=== PATIENT | male | born 1975 | race Caucasian/White ===

== ENCOUNTER 2016-12-23 01:53 | Emergency (ER) | payer OTHER ==
--- NOTE | ~2016-12-23 | CT16 ---
[facility] A Service of [facility] RADIOLOGY TEXT RESULTS PATIENT: ALYSSA SCHROEDER LOCATION: SED : 71 UNIT #: [id number] AGE: [address]: Israel Anglin MD SEX: M ORDER DR: [id number] [place] [id number] E MR#: [id number] Acc #: [id number] NAME: ALYSSA SCHROEDER. : 1975 SEX: M STUDY DATE/TIME: 12/23/2016 3:40 UNIT: SED ROOM: STUDY DESCRIPTION: CT Angio Chest for PE Attending Physician: Israel Anglin M.D. Ordering Physician: Israel Anglin M.D. Primary Care Physician: Jorgito Paul A.P.R.N. MEDICAL IMAGING REPORT This report is preliminary unless electronic signature is present. EXAM CT scan of the chest with pulmonary embolus protocol INDICATION Right-sided chest pain and shortness of breath this morning. History of pulmonary embolus 2009. FINDINGS The patient was given 80 mL of Isovue 370 and spiral imaging was performed through the chest. 3-D reconstructions of the pulmonary arteries were generated. This CT examination was performed with one or more of the following radiation dose reduction techniques: automatic exposure control, adjustment of mA and/or kV according to patient size, and iterative reconstruction. There is adequate opacification of the pulmonary arteries. There is no CT evidence of pulmonary embolus. The aorta is normal in size. There is no adenopathy. The visualized portions of the upper abdomen are normal. The thyroid gland is normal. The lungs are clear. IMPRESSION No CT evidence of pulmonary embolus. No active disease. Dictated by... Abdon Pina M.D. THIS IS AN ELECTRONICALLY VERIFIED REPORT Abdon Pina M.D. at 12/23/2016 1:21 PM LORRAINE/shira [facility] A Service of [facility] RADIOLOGY TEXT RESULTS PATIENT: ALYSSA SCHROEDER [id number] [birth year] UNIT #: [id number] AGE: [address]: Israel Anglin MD SEX: M ORDER DR: TD: 12/23/2016 06:16 JOB #: [id number] MEDICAL IMAGING REPORT Page 1 of 1
--- NOTE | ~2016-12-23 | EKG ---
PATIENT: ALYSSA SCHROEDER UNIT #: [id number] Ventricular Rate: 107 BPM Atrial Rate: 107 BPM P-R Interval: 160 ms QRS Duration: 84 ms Q-T Interval: 348 ms QTC Calculation(Bezet): 464 ms P [place]: 31 degrees Calculated R [place]: 34 degrees Calculated T [place]: 50 degrees Diagnosis Line: Sinus tachycardia Diagnosis Line: Low voltage QRS Diagnosis Line: Borderline ECG Diagnosis Line: When compared with ECG of 23-MAR-2016 00:43, Diagnosis Line: No significant change was found Diagnosis Line: Confirmed by JUNIOR NEGRO MD ([id number]) on Diagnosis Line: 12/29/2016 8:29:06 AM INTERPRETING MD: MARKY GOOD
[~2016-12-23 01:53] MED LIST: ADIPEX-P37.5 M1 PO; ALAVERT10 M2 PO; ALAVERT10 MG/TAB PO; ALBUTEROL17 GM INH; ARIXTRA SUBQ; ARIXTRA2.5 MG/0.5 INJ; BACTRIM DS TABL1 TAB PO; BENTYL20 MG; C PAP; CLARITIN10 M3 PO; COUMADIN PO; DIFLUCAN PO; DILANTIN PO; FLEXERIL10 MG PO; FUROSEMIDE40 MG PO; GLIPIZIDE5 MG/BOTT1 PO; GLUCOPHAGE500 MG PO; HUGO FOLDING WA1 PKT; HYDROCHLOROTHIA25 MG PO; HYDROCODON-ACE1 EAC7 PO; HYDROCORTISONE15 G3 TP; IBUPROFEN800 MG; IBUPROFEN800 MG PO; KEFLEX PO; KEFLEX500 M1 PO; LANSOPRAZOLE; LASIX PO; LEVAQUIN PO; LIPITOR20 MG PO; LORTAB 5/500 TA1 TA1 PO; METFORMIN HCL1000 M1 PO; METFORMIN PO; MUCINEX DM ER1 EAC1 PO; MUCINEX DM TABL1 BOX PO; NORCO1 TAB 10/3 PO; NYSTATIN15 GM OINT TOP; PEPCID AC20 M2 PO; PHENERGAN/CODEIN5 ML PO; PREDNISONE PO; PREVACID PO; ROBITUSSIN A-C S5 ML PO; TESSALON PERLE100 M1; TETRACYCLINE PO; VIBRAMYCIN100 M1 PO; VICODIN 5/1 TAB 5/50 PO; VISTARIL PO; XARELTO20 MG PO; ZANTAC PO; ZITHROMAX PO; ZITHROMAX500 MG PO; ZOFRAN PO; [UNRECOGNIZED DRUG - REMARK]; [UNRECOGNIZED DRUG - REMARK]
[2016-12-23 03:00] LABS: BASOPHIL# 0.1 X10e3 (0-0.3); BASOPHIL% 1.3 % (0-2.5); EOSINOPHIL# 0.2 X10e3 (0-0.7); EOSINOPHIL% 1.7 % (0.0-7.0); HEMATOCRIT 43.1 % (38.0-50.0); HEMOGLOBIN 14.4 gm/dL (13.0-16.0); LYMPHOCYTE# 2.9 X10e3 (1.0-3.5); LYMPHOCYTE% 29.7 % (17.0-45.0); MEAN CELL VOLUME 89.6 FL (83-96); MEAN CORPUSCULAR HGB CONC 33.5 g/dL (30-36); MEAN PLATELET VOLUME 8.7 FL (6.5-11.5); MONOCYTE# 0.9 X10e3 (0-1.0); MONOCYTE% 8.9 % (3.0-12.0); NEUTROPHIL# 5.6 X10e3 (1.5-7.1); NEUTROPHIL% 58.4 % (40-75); PLATELET COUNT 294 X10e3 (140-420); RED BLOOD COUNT 4.81 X10e (3.90-5.60); RED CELL DISTRIBUTION WIDTH 14.4 % (11.0-15.5); WHITE BLOOD COUNT 9.6 X10e3 (4.0-10.5)
[2016-12-23 03:01] LABS: DIFF IND NO
[2016-12-23 03:05] LABS: INR 1.1; PROTHROMBIN TIME (PATIENT) 12.8 SECONDS (9.5-12.4)
[2016-12-23 03:13] LABS: POC - CKMB <1.0 ng/mL (0.0-7.9); POC - TROPONIN <0.05 ng/mL (<=0.05)
[2016-12-23 03:13] LABS: ALBUMIN SERUM 4.5 g/dL (3.5-5.0); BILIRUBIN,TOTAL 0.9 mg/dL (0.2-2.0); BUN/CREATININE RATIO 17.14; CREATININE SERUM 0.7 mg/dL (0.6-1.4); GLOM FILT RATE Estimated 115.6 mL/min (>60); POTASSIUM 4.3 mmol/L (3.5-5.1); PROTEIN TOTAL SERUM 8.3 g/dL (6.0-8.3)
[2016-12-23 04:30] LABS: AMPHETAMINE NEG (NEG); BARBITURATES NEG (NEG); BENZODIAZEPINES NEG (NEG); COCAINE NEG (NEG); MARIJUANA NEG (NEG); OPIATES POS (NEG); TRICYCLIC ANTIDEPRESSANTS NEG (NEG); U METHADONE NEG (NEG)
== END 2016-12-23 04:35 | disposition home or self-care (01) ==
LOC: SED 01:53
DX: J20.9 Acute bronchitis, unspecified (principal); Z86.711 Personal history of pulmonary embolism; J44.9 Chronic obstructive pulmonary disease, unspecified
CPT/HCPCS: 36415; 71275; 80053; 80307; 82553; 83880; 84484; 85025; 85610; 85730; 93005; 96361; 96374; 99285; J2270; Q9967

== ENCOUNTER → 2017-01-25 | Outpatient (CLI) | payer OTHER ==
--- NOTE | ~2017-01-25 | CT55 ---
[facility] A Service of [facility] RADIOLOGY TEXT RESULTS PATIENT: ALYSSA SCHROEDER LOCATION: [facility] : [birth year] UNIT #: [id number] AGE: [address]: Jalyn Garcia SEX: M ORDER DR: [id number] [place] [id number] O MR#: [id number] Acc #: [id number] NAME: ALYSSA SCHROEDER : 1975 SEX: M STUDY DATE/TIME: 01/25/2017 10:12 UNIT: [facility] ROOM: STUDY DESCRIPTION: CT Chest W Con Attending Physician: Jalyn Garcia A.P.R.N. Referring Physician: Jalyn Garcia A.P.R.N. Ordering Physician: Jalyn Garcia A.P.R.N. Primary Care Physician: Jorgito Paul A.P.R.N. MEDICAL IMAGING REPORT This report is preliminary unless electronic signature is present. EXAM CT of the chest with contrast INDICATIONS Mild chest pain with breathing for [address] scan of the chest was performed following the administration of IV contrast. Coronal and sagittal reformatted images were obtained. This CT exam was performed with one or more of the following radiation dose reduction techniques: automatic control, adjustment of mA and/or kV according to patient size, and iterative reconstruction. Comparison with 12/23/2016. FINDINGS There is no airspace consolidation or suspicious pulmonary nodule. There is no lymphadenopathy or pleural effusion. Limited imaging of the upper abdomen shows a cholecystectomy and is otherwise unremarkable. The bone windows are unremarkable. IMPRESSION There is no evidence for airspace consolidation. Interstitial disease or suspicious pulmonary nodule. Dictated by... Maurisio Rao M.D. THIS IS AN ELECTRONICALLY VERIFIED REPORT Maurisio Rao M.D. at 01/26/2017 4:59 PM ARS/rnr TD: 01/25/2017 22:34 [facility] A Service [facility] RADIOLOGY TEXT RESULTS PATIENT: ALYSSA SCHROEDER LOCATION: [facility] #: [id number] : [birth year] UNIT #: [id number] AGE: [address]: Jalyn Garcai SEX: M ORDER DR: MATT #: [id number] MEDICAL IMAGING REPORT Page 1 of 1
[2017-01-25 10:20] LABS: POC - CREATININE 0.75 mg/dL (0.64-1.27); POC - GFR >60.0 mL/min (>60)
== END | disposition home or self-care (01) ==
LOC: SCT 09:24
PROVIDERS: Nurse Practitioner Acute Care
DX: R06.00 Dyspnea, unspecified (principal); R05 Cough
CPT/HCPCS: 71260; 82565; Q9967